=== PATIENT | female | born 2005 | race Caucasian/White ===

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

== ENCOUNTER 2025-01-18 08:19 | Outpatient (CLI) | payer BC, SELFPAY ==
--- NOTE | ~2025-01-18 | US_ITS ---
US breast RT limited 01/18/2025 08:36 Indication: Palpable right breast abnormality Procedure: Limited ultrasound of the right breast in the area of palpable concern Comparison: Ultrasound dated 07/03/2022 Findings: At 7:00, 7 cm from the nipple there is an oval encapsulated circumscribed parallel oriented hypoechoic mass measuring 12 x 6 x 10 mm. There is posterior acoustic enhancement and no internal va scularity. No other masses are seen. Impression: 1: Probable benign right breast mass measuring 12 mm at 7:00, 7 cm from the nipple. BI-RADS CATEGORY 3-PROBABLY BENIGN FINDING RECOMMENDATION: 6 month follow-up Limited right breast ultrasound recommended. Reviewed, dictated and finalized at location [] Impression: 1: Probable benign right breast mass measuring 12 mm at 7:00, 7 cm from the nip ple. BI-RADS CATEGORY 3-PROBABLY BENIGN FINDING RECOMMENDATION: 6 month follow-up Limited right breast ultrasound recommended.
== END 2025-01-18 08:20 | disposition home or self-care (01) ==
LOC: MICIMG 08:22
PROVIDERS: PCP Obstetrics & Gynecology; Visit Provider Obstetrics & Gynecology
DX: N63.10 Unspecified lump in the right breast, unspecified quadrant (principal)
CPT/HCPCS: 76642

== ENCOUNTER 2025-09-28 17:00 | Emergency (ER) | payer BC, SELFPAY ==
[2025-09-28 17:07] VITALS: BP 125/74; PULSE 91; RESP 16; TEMP 36.9; O2SAT 100
--- NOTE | 2025-09-28 17:19 | ED_ITS ---
HPI - Ear Problem General Chief complaint: Ear Stated complaint: Ears Irritation Time Seen by Provider: 09/28/25 17:10 Source: patient and RN notes reviewed Mode of arrival: ambulatory Limitations: no limitations History of Present Illness HPI Narrative: 20-year-old female presents with concern for bilateral redness, warmth, mild swelling, irritation and mild tenderness to both external ears. She reports she woke up feeling this way. She denies middle ear pain, discharge from the ears, upper respiratory infection. She denies other itching, swelling, redness, warmth, facial swelling. She denies decrease lip swelling and tongue swelling. She denies intervention MD Complaint: other (Red ears) Related Data Home Medications ?Medication ?Instructions ?Recorded ?Confirmed ?Last Taken ?Type norethindrone 1 mg-ethinyl tablet 12/11/23 Unknown Hi story estradiol 20 mcg (24)-iron 75 mg (4) tablet () Allergies Allergy/AdvReac Type Severity Reaction Status Date / Time No Known Allergies Allergy Unknown Verified 09/28/25 17:01 Review of Systems Review of Systems: CONSTITUTIONAL: Denies malaise, chills, sweats, or fever. EYES: Denies visual changes, redness, or discharge. ENT: Denies rhinorrhea, congestion, sinus pain, and sore throat. Reports bilateral ear redness, warmth, slight swelling, irritation and mild tenderness CARDIOVASCULAR: Denies chest pain, palpitations, or edema. RESPIRATORY: Denies cough. Denies dyspnea. GASTROINTESTINAL: Denies abdominal pain, nausea, vomiting, diarrhea SKIN: Denies rash or itching. MUSCULOSKELETAL: Denies myalgia. NEUROLOGIC: Denies headache. All systems reviewed & are unremarkable except as noted in HPI and below PMFSH Social History Social History Gender identity (if verbalized by the patient): Female Comments At time of signature, agree with nursing past medical, surgical, social and family history. There is no relevant family history pertinent to the presenting complaint Exam Narrative: GENERAL: Well-appearing, well-nourished, and in no acute distress. HEAD: Normocephalic EYES: PERRLA, conjunctivae clear ENT: Nares clear, turbinates edematous, clear discharge. Mucous membranes moist. TM pearly metzger with sharp light reflex bilaterally; no tragal tenderness, EAC unremarkable. No post or pre-auricular erythema, induration, or warmth noted. Oropharynx not erythematous without lesions. Tonsils not enlarged and without exudate, no drooling, no hoarseness, no trismus, uvula midline. NECK: Supple. No lymphadenopathy CHEST: Clear to auscultation, breath sounds equal. No wheezing, rhonchi, rales, or stridor. No respiratory distress, speaks in full sentences. HEART: Regular rate and rhythm. No murmur heard. SKIN: Warm, dry, no rash. Bilateral lower ears erythematous, mildly warm without any induration, swelling, rash noted NEURO: Alert and oriented x3. PSYCH: Normal mood and affect Course Course Emergency Course: Patient is aware of diagnosis, understands and agrees to treatment plan. Anticipatory guidance given. Patient agrees to follow-up as directed and is aware of reasons to seek care at the emergency department. Portions of this record may have been created with voice recognition software Level of Care: [facility] Visit Vital Signs Vital signs: Vital Signs Temperature 98.4 F 09/28/25 17:07 Pulse Rate 91 09/28/25 17:07 Respiratory Rate 16 09/28/25 17:07 Blood Pressure 125/74 09/28/25 17:07 Pulse Oximetry 100 09/28/25 17:07 Oxygen Delivery Room Air 09/28/25 17:07 Temperature 98.4 F 09/28/25 17:07 Pulse Rate 91 09/28/25 17:07 Respiratory Rate 16 09/28/25 17:07 Blood Pressure 125/74 09/28/25 17:07 Pulse Oximetry 100 09/28/25 17:07 Oxygen Delivery Room Air 09/28/25 17:07 Reviewed. Medical Decision Making MDM Narrative Medical decision making narrative: I evaluated this in the [facility]. History is obtained from patient who is an independent historian and physical exam was performed.? Available medical records were reviewed. ? Exam findings and relevant testing show no acute concerns or changes; patient is non-toxic appearing and is in no distress. Differential diagnosis considered: Randolph virus, strep pharyngitis, allergic rhinitis, upper respiratory tract infection, sinusitis, rhinosinusitis, nasopharyngitis. viral pharyngitis, otitis media, otitis externa, otitis effusion, pre/post auricular cellulitis, mastoiditis, cerumen impaction, foreign body. Exam findings show no acute concerns or changes; patient is non-toxic appearing and is in no distress. Patient is appropriate for outpatient treatment and follow-up. ? Differential diagnosis and treatment plan were discussed with the patient. Patient agrees with discussion and after shared medical decision making agrees with plan of care. All questions were answered to the patient's satisfaction. Patient is appropriate for outpatient treatment and follow-up. Vital Signs Vital Signs: Vital Signs Temperature 98.4 F 09/28/25 17:07 Pulse Rate 91 09/28/25 17:07 Respiratory Rate 16 09/28/25 17:07 Blood Pressure 125/74 09/28/25 17:07 Pulse Oximetry 100 09/28/25 17:07 Oxygen Delivery Room Air 09/28/25 17:07 Temperature 98.4 F 09/28/25 17:07 Pulse Rate 91 09/28/25 17:07 Respiratory Rate 16 09/28/25 17:07 Blood Pressure 125/74 09/28/25 17:07 Pulse Oximetry 100 09/28/25 17:07 Oxygen Delivery Room Air 09/28/25 17:07 Critical Care Time Critical Care Time Critical Care Time: No Discharge Plan Discharge Clinical Impression: Allergic reaction Patient Disposition: Home Condition: Stable Instructions: Cold Compress or Soak (ED) Additional Instructions: Apply prescribed cream to the area twice daily. Take nondrowsy antihistamine such as Zyrtec daily, you can apply cold compresses to the sites. You can also take Benadryl every 6 hours as needed, this may make you drowsy. If you have worsening symptoms such is increased pain or swelling on one side, or fever you should be re-evaluated. Patient Language: Nicaraguan Prescriptions: New triamcinolone acetonide 0.1 % cream 1 applic TOPICAL BID 7 Days Qty: 80 0RF No Action 24 1 mg-20 mcg (24)/75 mg (4) tablet Follow-up/Referrals: Silvano Lomas MD [Primary Care Provider, [employer]] Time of Disposition: 17:22
== END 2025-09-28 17:25 | disposition home or self-care (01) ==
PROVIDERS: Emergency Provider Nurse Practitioner; PCP Obstetrics & Gynecology
DX: T78.40XA Allergy, unspecified, initial encounter (principal)
CPT/HCPCS: 99213; G0463